=== PATIENT | male | born 1965 | race African-American/Black ===

== ENCOUNTER 2017-02-12 14:03 | Emergency (ER) | payer MEDICAID ==
[~2017-02-12] VITALS: Ht 162.6 cm; Wt 65.0 kg
[~2017-02-12 14:03] MED LIST: TRAMADOL
[2017-02-12] MEDS ORDERED: TRAMADOL 50MG TABLET PO ONE (17:00)
[2017-02-12] MEDS ORDERED: CEFTRIAXONE SODIUM 250 MG/VIAL IM ONE (18:00)
[2017-02-12] MEDS ORDERED: AZITHROMYCIN 500 MG TABLET PO ONE (18:00)
[2017-02-12] MEDS ORDERED: LIDOCAINE HCL 1% 20ML VIAL (Pyxis) INJ INFIL ONE (18:00)
[2017-02-12 18:46] VITALS: BP 132/78
== END 2017-02-12 18:47 | disposition home or self-care (01) ==
LOC: ER 16:08
DX: N45.3 Epididymo-orchitis (principal); N43.3 Hydrocele, unspecified; I10 Essential (primary) hypertension; G83.9 Paralytic syndrome, unspecified; Z87.891 Personal history of nicotine dependence
CPT/HCPCS: 76870; 93976; 96372; 99284; J0696; J3490; Z7610

== ENCOUNTER 2019-01-24 12:50 | Emergency (ER) | payer MEDICAID ==
[~2019-01-24] VITALS: Ht 157.5 cm; Wt 78.0 kg
[2019-01-24 14:06] VITALS: BP 138/86
== END 2019-01-24 14:07 | disposition home or self-care (01) ==
LOC: ER 12:50
DX: G89.29 Other chronic pain (principal); M54.5 Low back pain; I10 Essential (primary) hypertension; F17.200 Nicotine dependence, unspecified, uncomplicated; Z79.899 Other long term (current) drug therapy
CPT/HCPCS: 99283

== ENCOUNTER 2021-04-24 18:52 | Inpatient (IN) | payer MEDICAID ==
[~2021-04-24] VITALS: Ht 170.2 cm; Wt 57.2 kg
[2021-04-24] MEDS ORDERED: ACETAMINOPHEN 325MG TABLET PO STA (22:42)
[2021-04-24] MEDS ORDERED: SODIUM CHLORIDE 0.9% 1000ML BAG (SEPSIS BOLUS) IV ONE (22:45)
[2021-04-24] MEDS ORDERED: AZITHROMYCIN 500MG/250ML 250 ML IV ONE (22:45)
[2021-04-24] MEDS ORDERED: CEFTRIAXONE 1 G PREMIX 50 ML IV ONE (22:45)
[2021-04-24 23:22] LABS: HEMATOCRIT. 27.7 % (42.0-52.0); HEMOGLOBIN. 9.4 g/dL (14.0-18.0); MEAN CORPUSCULAR HEMOGLOBIN 31.3 pg (28.0-32.0); MEAN CORPUSCULAR VOLUME 92.9 fL (80.0-94.0); PLATELET 352 x1000/uL (130-400); RED BLOOD CELL COUNT 2.99 mill/uL (4.7-6.1); RED CELL DISTRIBUTION WIDTH 13.8 % (11.6-14.6)
[2021-04-24 23:29] LABS: CHLORIDE 101 mEq/L (98-107)
[2021-04-24 23:32] LABS: INR 1.2
[2021-04-25 00:17] LABS: PLATELET ESTIMATE NORMAL
[2021-04-25] MEDS ORDERED: METRONIDAZOLE 500 MG PREMIX 100 ML IV ONE (00:45)
[2021-04-25] MEDS ORDERED: MORPHINE SULFATE 4 MG/ML CPJ (NOT FOR IM USE) IV ONE (01:00)
[2021-04-25 04:25] LABS: CLARITY URINE CLOUDY (CLEAR); COLOR URINE DARK YELLOW (YELLOW); KETONES URINE NEGATIVE (NEGATIVE); LEUKOCYTE ESTERASE URINE 3+ (NEGATIVE); NITRITE URINE POSITIVE (NEGATIVE); OCCULT BLOOD URINE 3+ (NEGATIVE); PH URINE 6.5 (4.5-8.0); PROTEIN URINE 2+ (NEGATIVE); SPECIFIC GRAVITY URINE 1.014 (1.005-1.030)
[2021-04-25 04:42] LABS: *AMPHETAMINES SCREEN URINE NEGATIVE (NEGATIVE); *BARBITURATES SCREEN URINE NEGATIVE (NEGATIVE); *BENZODIAZEPINES SCREEN URINE NEGATIVE (NEGATIVE); *COCAINE SCREEN URINE NEGATIVE (NEGATIVE); METHADONE URINE SCREEN NEGATIVE (NEGATIVE); OPIATES URINE SCREEN NEGATIVE (NEGATIVE)
[2021-04-25 04:43] LABS: CANNABINOID URINE SCREEN NEGATIVE (NEGATIVE); PHENCYCLIDINE URINE SCREEN NEGATIVE (NEGATIVE)
[2021-04-25] MEDS: TRAMADOL 50MG TABLET PO PRN ×2 (05:31→11:07)
[2021-04-25] MEDS ORDERED: IOHEXOL-300 100 ML BOTTLE ONE ×2 (06:22→22:18)
[2021-04-25] MEDS ORDERED: ONDANSETRON HCL 4MG/2ML INJ IV PRN (10:45)
[2021-04-25 10:54] VITALS: BP 131/84
[2021-04-25 12:00] VITALS: BP_SYST 126; BP_SYST 130; BP_DIAS 73; BP_DIAS 79
[2021-04-25] MEDS: PIPERACILLIN/TAZOBACTAM 3.375 G in DEXTROSE 5% WATER 50 ML IV SCH ×2 (14:11→23:04)
[2021-04-25 16:00] VITALS: BP 129/75
[2021-04-25] MEDS ORDERED: NALOXONE HCL 0.4MG/ML VIAL IV PRN (16:45)
[2021-04-25] MEDS: MORPHINE SULFATE 2 MG/ML CPJ (NOT FOR IM USE) IV PRN (16:59)
[2021-04-25] MEDS: VANCOMYCIN 1250MG in DEXTROSE 5% WATER 250ML IV SCH (17:00)
[2021-04-25] MEDS: POTASSIUM CHLORIDE INJ 30 MEQ in SODIUM CHLORIDE 0.45% 1,000 ML IV SCH (17:03)
[2021-04-25 20:00] VITALS: BP 107/62
[2021-04-26] VITALS: BP 119/74
[2021-04-26] MEDS: POTASSIUM CHLORIDE INJ 30 MEQ in SODIUM CHLORIDE 0.45% 1,000 ML IV SCH (01:17)
[2021-04-26] MEDS: MORPHINE SULFATE 2 MG/ML CPJ (NOT FOR IM USE) IV PRN ×3 (02:09→20:13)
[2021-04-26] MEDS: VANCOMYCIN 1250MG in DEXTROSE 5% WATER 250ML IV SCH ×2 (03:15→15:22)
[2021-04-26 04:00] VITALS: BP 96/64
[2021-04-26] MEDS: PIPERACILLIN/TAZOBACTAM 3.375 G in DEXTROSE 5% WATER 50 ML IV SCH ×3 (06:00→22:45)
[2021-04-26 08:00] VITALS: BP 105/51
[2021-04-26] MEDS ORDERED: INFLUENZA VACCINE 05/PF 0.5 ML SYRINGE IM ONE (10:00)
[2021-04-26 12:00] VITALS: BP 91/73
[2021-04-26] MEDS ORDERED: GADOTERATE MEGLUMINE 5 MMOL/10 ML VIAL IV ONE (15:12)
[2021-04-26] MEDS: DEXT 5%/0.45% NACL KCL 20MEQ/L 1,000 ML IV SCH (15:23)
[2021-04-26 16:00] VITALS: BP_SYST 125; BP_SYST 126; BP_DIAS 57; BP_DIAS 58
[2021-04-26 20:00] VITALS: BP 113/69
[2021-04-26 20:17] LABS: CHLORIDE 100 mEq/L (98-107)
[2021-04-26 20:36] LABS: HEMATOCRIT. 23.6 % (42.0-52.0); HEMOGLOBIN. 8.1 g/dL (14.0-18.0); MEAN CORPUSCULAR HEMOGLOBIN 31.7 pg (28.0-32.0); MEAN CORPUSCULAR VOLUME 92.7 fL (80.0-94.0); MEAN PLATELET VOLUME 7.9 fl (7.4-10.4); PLATELET 324 x1000/uL (130-400); RED BLOOD CELL COUNT 2.55 mill/uL (4.7-6.1); RED CELL DISTRIBUTION WIDTH 13.6 % (11.6-14.6)
[2021-04-26 22:42] LABS: PLATELET ESTIMATE NORMAL
[2021-04-27] VITALS: BP 110/80
[2021-04-27] MEDS: VANCOMYCIN 1250MG in DEXTROSE 5% WATER 250ML IV SCH ×2 (02:46→15:51)
[2021-04-27] MEDS: DEXT 5%/0.45% NACL KCL 20MEQ/L 1,000 ML IV SCH ×3 (02:46→23:05)
[2021-04-27] MEDS: MORPHINE SULFATE 2 MG/ML CPJ (NOT FOR IM USE) IV PRN ×3 (02:53→17:33)
[2021-04-27 04:00] VITALS: BP 100/70
[2021-04-27] MEDS: PIPERACILLIN/TAZOBACTAM 3.375 G in DEXTROSE 5% WATER 50 ML IV SCH ×3 (05:53→21:14)
[2021-04-27 06:32] LABS: CHLORIDE 102 mEq/L (98-107)
[2021-04-27 06:36] LABS: BASOPHILS % 0.1 % (0.0-2.0); HEMATOCRIT. 24.9 % (42.0-52.0); HEMOGLOBIN. 8.5 g/dL (14.0-18.0); LYMPHOCYTES % 4.9 % (20.0-50.0); MEAN CORPUSCULAR HEMOGLOBIN 31.9 pg (28.0-32.0); MEAN CORPUSCULAR VOLUME 93.8 fL (80.0-94.0); MONOCYTES % 4.6 % (2.0-8.0); NEUTROPHILS % 90.4 % (40.0-76.0); PLATELET 332 x1000/uL (130-400); RED BLOOD CELL COUNT 2.66 mill/uL (4.7-6.1); RED CELL DISTRIBUTION WIDTH 13.9 % (11.6-14.6)
[2021-04-27 08:00] VITALS: BP 130/65
[2021-04-27 12:00] VITALS: BP 118/78
[2021-04-27 16:00] VITALS: BP 136/82
[2021-04-27 20:00] VITALS: BP 110/67
[2021-04-28] VITALS: BP 118/63
[2021-04-28] MEDS: MORPHINE SULFATE 2 MG/ML CPJ (NOT FOR IM USE) IV PRN ×3 (01:04→18:37)
[2021-04-28] MEDS: VANCOMYCIN 1250MG in DEXTROSE 5% WATER 250ML IV SCH (01:04)
[2021-04-28 04:00] VITALS: BP 100/59
[2021-04-28] MEDS: PIPERACILLIN/TAZOBACTAM 3.375 G in DEXTROSE 5% WATER 50 ML IV SCH ×3 (05:07→21:21)
[2021-04-28 05:52] LABS: BASOPHILS % 0.2 % (0.0-2.0); HEMATOCRIT. 25.8 % (42.0-52.0); HEMOGLOBIN. 8.6 g/dL (14.0-18.0); LYMPHOCYTES % 10.4 % (20.0-50.0); MEAN CORPUSCULAR HEMOGLOBIN 31.9 pg (28.0-32.0); MEAN CORPUSCULAR VOLUME 95.7 fL (80.0-94.0); MEAN PLATELET VOLUME 7.8 fl (7.4-10.4); MONOCYTES % 8.1 % (2.0-8.0); NEUTROPHILS % 81.3 % (40.0-76.0); PLATELET 333 x1000/uL (130-400)
[2021-04-28 06:08] LABS: CHLORIDE 104 mEq/L (98-107)
[2021-04-28 08:00] VITALS: BP 140/98
[2021-04-28 12:00] VITALS: BP 138/96
[2021-04-28] MEDS: ACETAMINOPHEN 325MG TABLET PO PRN (16:32)
[2021-04-28] MEDS: DEXT 5%/0.45% NACL KCL 20MEQ/L 1,000 ML IV SCH (16:34)
[2021-04-28 20:00] VITALS: BP 123/63
[2021-04-28] MEDS: METHYL SALICYLATE/MENTHOL CREAM 85GM TOP PRN (20:40)
[2021-04-29] VITALS: BP 131/98
[2021-04-29] MEDS: MORPHINE SULFATE 2 MG/ML CPJ (NOT FOR IM USE) IV PRN (00:34)
[2021-04-29] MEDS: DEXT 5%/0.45% NACL KCL 20MEQ/L 1,000 ML IV SCH ×2 (03:30→18:27)
[2021-04-29 04:00] VITALS: BP 133/96
[2021-04-29] MEDS: PIPERACILLIN/TAZOBACTAM 3.375 G in DEXTROSE 5% WATER 50 ML IV SCH ×3 (05:08→21:31)
[2021-04-29 06:47] LABS: CHLORIDE 105 mEq/L (98-107)
[2021-04-29 07:01] LABS: HEMATOCRIT. 23.7 % (42.0-52.0); HEMOGLOBIN. 7.9 g/dL (14.0-18.0); LYMPHOCYTES % 9.4 % (20.0-50.0); MEAN CORPUSCULAR HEMOGLOBIN 31.4 pg (28.0-32.0); MEAN CORPUSCULAR VOLUME 94.3 fL (80.0-94.0); MEAN PLATELET VOLUME 7.9 fl (7.4-10.4); MONOCYTES % 6.3 % (2.0-8.0); NEUTROPHILS % 84.3 % (40.0-76.0); PLATELET 340 x1000/uL (130-400); RED BLOOD CELL COUNT 2.51 mill/uL (4.7-6.1); RED CELL DISTRIBUTION WIDTH 13.7 % (11.6-14.6)
[2021-04-29 08:00] VITALS: BP 148/66
[2021-04-29] MEDS ORDERED: POTASSIUM CHLORIDE 20MEQ TABLET SR PO SCH (11:30)
[2021-04-29 12:00] VITALS: BP 135/88
[2021-04-29 16:00] VITALS: BP 140/93
[2021-04-29] MEDS: TRAMADOL 50MG TABLET PO PRN (17:40)
[2021-04-29 20:00] VITALS: BP 133/61
[2021-04-30] VITALS: BP 128/71
[2021-04-30 04:00] VITALS: BP 130/70
[2021-04-30] MEDS: TRAMADOL 50MG TABLET PO PRN ×2 (04:24→18:33)
[2021-04-30] MEDS: DEXT 5%/0.45% NACL KCL 20MEQ/L 1,000 ML IV SCH ×2 (04:26→18:34)
[2021-04-30] MEDS: PIPERACILLIN/TAZOBACTAM 3.375 G in DEXTROSE 5% WATER 50 ML IV SCH ×3 (05:40→23:17)
[2021-04-30 08:00] VITALS: BP 130/73
[2021-04-30 11:56] LABS: CHLORIDE 107 mEq/L (98-107); HEMATOCRIT. 21.8 % (42.0-52.0); HEMOGLOBIN. 7.3 g/dL (14.0-18.0); MEAN CORPUSCULAR HEMOGLOBIN 31.7 pg (28.0-32.0); MEAN CORPUSCULAR VOLUME 94.5 fL (80.0-94.0); MEAN PLATELET VOLUME 7.6 fl (7.4-10.4); PLATELET 334 x1000/uL (130-400); RED BLOOD CELL COUNT 2.31 mill/uL (4.7-6.1); RED CELL DISTRIBUTION WIDTH 13.8 % (11.6-14.6)
[2021-04-30 12:00] VITALS: BP 142/76
[2021-04-30] MEDS ORDERED: POTASSIUM CHLORIDE 20MEQ TABLET SR PO NR (12:00)
[2021-04-30 16:00] VITALS: BP 148/72
[2021-04-30 20:00] VITALS: BP 136/76
[2021-04-30 23:26] LABS: PLATELET ESTIMATE NORMAL
[2021-05-01] VITALS: BP 122/70
[2021-05-01 04:00] VITALS: BP 127/61
[2021-05-01] MEDS: PIPERACILLIN/TAZOBACTAM 3.375 G in DEXTROSE 5% WATER 50 ML IV SCH ×3 (06:08→20:51)
[2021-05-01] MEDS ORDERED: POTASSIUM CHLORIDE 20MEQ TABLET SR PO ONE (07:45)
[2021-05-01 08:00] VITALS: BP 134/65
[2021-05-01] MEDS: DEXT 5%/0.45% NACL KCL 20MEQ/L 1,000 ML IV SCH ×2 (08:46→20:50)
[2021-05-01] MEDS: TRAMADOL 50MG TABLET PO PRN ×2 (08:46→16:10)
[2021-05-01 12:00] VITALS: BP 131/77
[2021-05-01 16:00] VITALS: BP 127/75
[2021-05-01 20:00] VITALS: BP 128/79
[2021-05-01] MEDS ORDERED: POTASSIUM CHLORIDE 20MEQ/PACKET PO NR (21:00)
[2021-05-02] VITALS: BP 122/80
[2021-05-02 04:00] VITALS: BP 128/79
[2021-05-02 06:13] LABS: HEMATOCRIT. 23.1 % (42.0-52.0); HEMOGLOBIN. 7.7 g/dL (14.0-18.0); MEAN CORPUSCULAR HEMOGLOBIN 31.5 pg (28.0-32.0); MEAN CORPUSCULAR VOLUME 94.5 fL (80.0-94.0); MEAN PLATELET VOLUME 7.9 fl (7.4-10.4); PLATELET 362 x1000/uL (130-400); RED BLOOD CELL COUNT 2.44 mill/uL (4.7-6.1)
[2021-05-02 06:46] LABS: CHLORIDE 108 mEq/L (98-107)
[2021-05-02] MEDS: PIPERACILLIN/TAZOBACTAM 3.375 G in DEXTROSE 5% WATER 50 ML IV SCH ×3 (07:06→21:13)
[2021-05-02] MEDS: DEXT 5%/0.45% NACL KCL 20MEQ/L 1,000 ML IV SCH ×2 (07:06→20:34)
[2021-05-02 08:00] VITALS: BP 119/98
[2021-05-02] MEDS ORDERED: KCL 20MEQ/100ML PREMIX 100 ML IV NR (11:30)
[2021-05-02 12:00] VITALS: BP 136/81
[2021-05-02] MEDS: TRAMADOL 50MG TABLET PO PRN (12:24)
[2021-05-02 16:00] VITALS: BP 136/88
[2021-05-02 17:44] LABS: PLATELET ESTIMATE NORMAL
[2021-05-02 20:00] VITALS: BP 123/67
[2021-05-03] VITALS: BP 122/72
[2021-05-03 04:00] VITALS: BP 120/68
[2021-05-03] MEDS: PIPERACILLIN/TAZOBACTAM 3.375 G in DEXTROSE 5% WATER 50 ML IV SCH ×3 (05:21→21:05)
[2021-05-03] MEDS: ACETAMINOPHEN 325MG TABLET PO PRN (05:22)
[2021-05-03 08:00] VITALS: BP 146/82
[2021-05-03] MEDS: DEXT 5%/0.45% NACL KCL 20MEQ/L 1,000 ML IV SCH ×2 (09:24→21:05)
[2021-05-03 10:47] LABS: BASOPHILS % 0.1 % (0.0-2.0); EOSINOPHILS % 0.1 % (0.0-5.0); HEMATOCRIT. 24.6 % (42.0-52.0); HEMOGLOBIN. 8.4 g/dL (14.0-18.0); MEAN CORPUSCULAR HEMOGLOBIN 32.4 pg (28.0-32.0); MEAN CORPUSCULAR VOLUME 94.4 fL (80.0-94.0); MEAN PLATELET VOLUME 7.9 fl (7.4-10.4); MONOCYTES % 8.9 % (2.0-8.0); NEUTROPHILS % 80.9 % (40.0-76.0); PLATELET 402 x1000/uL (130-400); RED CELL DISTRIBUTION WIDTH 14.1 % (11.6-14.6)
[2021-05-03 10:51] LABS: CHLORIDE 106 mEq/L (98-107)
[2021-05-03] MEDS: METHYL SALICYLATE/MENTHOL CREAM 85GM TOP PRN (15:19)
[2021-05-03 20:00] VITALS: BP 122/88
[2021-05-03] MEDS: TRAMADOL 50MG TABLET PO PRN (21:07)
[2021-05-04] VITALS: BP 101/73
[2021-05-04 04:00] VITALS: BP 110/62
[2021-05-04 07:10] LABS: BASOPHILS % 0.1 % (0.0-2.0); EOSINOPHILS % 0.1 % (0.0-5.0); HEMATOCRIT. 23.2 % (42.0-52.0); HEMOGLOBIN. 7.8 g/dL (14.0-18.0); LYMPHOCYTES % 9.1 % (20.0-50.0); MEAN CORPUSCULAR HEMOGLOBIN 31.9 pg (28.0-32.0); MEAN CORPUSCULAR VOLUME 95.1 fL (80.0-94.0); MEAN PLATELET VOLUME 7.7 fl (7.4-10.4); MONOCYTES % 8.2 % (2.0-8.0); NEUTROPHILS % 82.5 % (40.0-76.0); PLATELET 371 x1000/uL (130-400); RED BLOOD CELL COUNT 2.44 mill/uL (4.7-6.1); RED CELL DISTRIBUTION WIDTH 14.4 % (11.6-14.6)
[2021-05-04 07:38] LABS: CHLORIDE 107 mEq/L (98-107)
[2021-05-04 08:13] VITALS: BP 125/71
[2021-05-04] MEDS: DEXT 5%/0.45% NACL KCL 20MEQ/L 1,000 ML IV SCH (08:34)
[2021-05-04 11:48] VITALS: BP 108/69
[2021-05-04] MEDS ORDERED: POTASSIUM CHLORIDE 20MEQ TABLET SR PO NR ×2 (12:00→18:00)
[2021-05-04 16:00] VITALS: BP 119/72
[2021-05-04] MEDS: PIPERACILLIN/TAZOBACTAM 3.375 G in DEXTROSE 5% WATER 50 ML IV SCH ×2 (16:39→22:07)
[2021-05-04 20:00] VITALS: BP 113/72
[2021-05-04] MEDS: ACETAMINOPHEN 325MG TABLET PO PRN (22:07)
[2021-05-05] VITALS: BP 112/60
[2021-05-05 04:00] VITALS: BP 116/86
[2021-05-05] MEDS: PIPERACILLIN/TAZOBACTAM 3.375 G in DEXTROSE 5% WATER 50 ML IV SCH ×3 (05:15→22:00)
[2021-05-05] MEDS: DEXT 5%/0.45% NACL KCL 20MEQ/L 1,000 ML IV SCH ×2 (05:15→23:00)
[2021-05-05 08:00] VITALS: BP 97/75
[2021-05-05 08:35] LABS: HEMATOCRIT. 24.1 % (42.0-52.0); HEMOGLOBIN. 7.9 g/dL (14.0-18.0); MEAN CORPUSCULAR HEMOGLOBIN 31.3 pg (28.0-32.0); MEAN CORPUSCULAR VOLUME 95.2 fL (80.0-94.0); MEAN PLATELET VOLUME 7.4 fl (7.4-10.4); PLATELET 442 x1000/uL (130-400); RED BLOOD CELL COUNT 2.53 mill/uL (4.7-6.1); RED CELL DISTRIBUTION WIDTH 14.7 % (11.6-14.6)
[2021-05-05 09:33] LABS: CHLORIDE 108 mEq/L (98-107)
[2021-05-05 12:00] VITALS: BP 124/83
[2021-05-05 14:48] LABS: ATYPICAL LYMPHOCYTES 1
[2021-05-05 14:49] LABS: PLATELET ESTIMATE SLIGHTLY INCREASED
[2021-05-05 16:00] VITALS: BP 131/75
[2021-05-05 20:00] VITALS: BP 117/75
[2021-05-06] VITALS: BP 99/65
[2021-05-06 04:00] VITALS: BP 104/73
[2021-05-06] MEDS: PIPERACILLIN/TAZOBACTAM 3.375 G in DEXTROSE 5% WATER 50 ML IV SCH ×2 (06:00→13:03)
[2021-05-06 07:56] LABS: HEMOGLOBIN. 7.9 g/dL (14.0-18.0); MEAN CORPUSCULAR HEMOGLOBIN 31.5 pg (28.0-32.0); MEAN CORPUSCULAR VOLUME 95.9 fL (80.0-94.0); MEAN PLATELET VOLUME 7.6 fl (7.4-10.4); PLATELET 404 x1000/uL (130-400); RED CELL DISTRIBUTION WIDTH 14.8 % (11.6-14.6)
[2021-05-06 08:00] VITALS: BP 95/58
[2021-05-06] MEDS ORDERED: LIDOCAINE HCL 1% 20ML VIAL (Pyxis) INJ ONE (08:17)
[2021-05-06 11:12] LABS: CHLORIDE 108 mEq/L (98-107)
[2021-05-06 12:00] VITALS: BP 93/64
[2021-05-06] MEDS: DEXT 5%/0.45% NACL KCL 20MEQ/L 1,000 ML IV SCH ×2 (13:03→22:34)
[2021-05-06] MEDS: TRAMADOL 50MG TABLET PO PRN (13:04)
[2021-05-06] MEDS ORDERED: KCL 20MEQ/100ML PREMIX 100 ML IV SCH (15:00)
[2021-05-06 17:00] VITALS: BP 111/78
[2021-05-06 17:48] LABS: PLATELET ESTIMATE INCREASED
[2021-05-06 20:00] VITALS: BP 118/69
[2021-05-06] MEDS: CEFAZOLIN 2,000 MG in DEXT 5% WATER 100 ML IV SCH (23:19)
[2021-05-07] VITALS: BP 99/61
[2021-05-07 04:00] VITALS: BP 118/60
[2021-05-07] MEDS: CEFAZOLIN 2,000 MG in DEXT 5% WATER 100 ML IV SCH ×3 (06:22→22:24)
[2021-05-07 06:43] LABS: BASOPHILS % 0.2 % (0.0-2.0); HEMATOCRIT. 22.9 % (42.0-52.0); HEMOGLOBIN. 7.5 g/dL (14.0-18.0); LYMPHOCYTES % 14.6 % (20.0-50.0); MEAN CORPUSCULAR HEMOGLOBIN 30.9 pg (28.0-32.0); MEAN CORPUSCULAR VOLUME 94.3 fL (80.0-94.0); MEAN PLATELET VOLUME 7.5 fl (7.4-10.4); MONOCYTES % 6.1 % (2.0-8.0); NEUTROPHILS % 79.1 % (40.0-76.0); PLATELET 395 x1000/uL (130-400); RED BLOOD CELL COUNT 2.43 mill/uL (4.7-6.1); RED CELL DISTRIBUTION WIDTH 14.5 % (11.6-14.6)
[2021-05-07 07:24] LABS: CHLORIDE 110 mEq/L (98-107)
[2021-05-07 08:00] VITALS: BP 116/59
[2021-05-07] MEDS ORDERED: POTASSIUM CHLORIDE 20MEQ TABLET SR PO NR (11:30)
[2021-05-07] MEDS: DEXT 5%/0.45% NACL KCL 20MEQ/L 1,000 ML IV SCH ×2 (11:59→23:39)
[2021-05-07 12:00] VITALS: BP 124/92
[2021-05-07 13:58] LABS: TOTAL IRON BINDING CAPACITY 116 ug/dL (250-450)
[2021-05-07 16:00] VITALS: BP 127/75
[2021-05-07 20:00] VITALS: BP 113/75
[2021-05-07] MEDS: ACETAMINOPHEN 325MG TABLET PO PRN (22:01)
[2021-05-08] VITALS: BP 123/66
[2021-05-08] MEDS: TRAMADOL 50MG TABLET PO PRN ×2 (03:59→23:49)
[2021-05-08 04:00] VITALS: BP 115/74
[2021-05-08] MEDS: CEFAZOLIN 2,000 MG in DEXT 5% WATER 100 ML IV SCH ×3 (06:43→22:29)
[2021-05-08 06:52] LABS: BASOPHILS % 0.2 % (0.0-2.0); EOSINOPHILS % 0.2 % (0.0-5.0); HEMATOCRIT. 22.3 % (42.0-52.0); HEMOGLOBIN. 7.5 g/dL (14.0-18.0); LYMPHOCYTES % 15.3 % (20.0-50.0); MEAN CORPUSCULAR HEMOGLOBIN 31.7 pg (28.0-32.0); MEAN CORPUSCULAR VOLUME 94.4 fL (80.0-94.0); MEAN PLATELET VOLUME 7.4 fl (7.4-10.4); MONOCYTES % 7.3 % (2.0-8.0); PLATELET 369 x1000/uL (130-400); RED BLOOD CELL COUNT 2.36 mill/uL (4.7-6.1); RED CELL DISTRIBUTION WIDTH 14.3 % (11.6-14.6)
[2021-05-08 07:05] LABS: CHLORIDE 107 mEq/L (98-107)
[2021-05-08 08:00] VITALS: BP 124/70
[2021-05-08 12:00] VITALS: BP 119/66
[2021-05-08] MEDS: DEXT 5%/0.45% NACL KCL 20MEQ/L 1,000 ML IV SCH (14:13)
[2021-05-08 16:00] VITALS: BP 131/63
[2021-05-08 20:00] VITALS: BP 138/81
[2021-05-09] VITALS: BP 136/79
[2021-05-09 04:00] VITALS: BP 133/82
[2021-05-09] MEDS: DEXT 5%/0.45% NACL KCL 20MEQ/L 1,000 ML IV SCH ×2 (05:57→14:43)
[2021-05-09] MEDS: CEFAZOLIN 2,000 MG in DEXT 5% WATER 100 ML IV SCH ×3 (05:58→22:03)
[2021-05-09 08:00] VITALS: BP 120/75
[2021-05-09 12:00] VITALS: BP 117/76
[2021-05-09 16:00] VITALS: BP 121/74
[2021-05-09] MEDS ORDERED: NALOXONE HCL 0.4MG/ML VIAL IV PRN (19:30)
[2021-05-09 20:00] VITALS: BP 132/74
[2021-05-09] MEDS: TRAMADOL 50MG TABLET PO PRN (21:42)
[2021-05-10] VITALS: BP 120/74
[2021-05-10] MEDS: DEXT 5%/0.45% NACL KCL 20MEQ/L 1,000 ML IV SCH ×2 (02:11→16:08)
[2021-05-10 04:00] VITALS: BP 124/92
[2021-05-10] MEDS: CEFAZOLIN 2,000 MG in DEXT 5% WATER 100 ML IV SCH ×3 (06:04→22:24)
[2021-05-10 08:00] VITALS: BP 124/64
[2021-05-10 08:27] LABS: BASOPHILS % 0.2 % (0.0-2.0); EOSINOPHILS % 0.1 % (0.0-5.0); HEMATOCRIT. 21.4 % (42.0-52.0); HEMOGLOBIN. 7.1 g/dL (14.0-18.0); LYMPHOCYTES % 14.3 % (20.0-50.0); MEAN CORPUSCULAR HEMOGLOBIN 31.4 pg (28.0-32.0); MEAN CORPUSCULAR VOLUME 95.1 fL (80.0-94.0); MEAN PLATELET VOLUME 7.8 fl (7.4-10.4); MONOCYTES % 9.2 % (2.0-8.0); NEUTROPHILS % 76.2 % (40.0-76.0); PLATELET 283 x1000/uL (130-400); RED BLOOD CELL COUNT 2.25 mill/uL (4.7-6.1); RED CELL DISTRIBUTION WIDTH 14.4 % (11.6-14.6)
[2021-05-10 08:45] LABS: CHLORIDE 105 mEq/L (98-107)
[2021-05-10] MEDS ORDERED: POTASSIUM CHLORIDE 20MEQ/PACKET PO SCH (10:30)
[2021-05-10 12:00] VITALS: BP 126/83
[2021-05-10 16:00] VITALS: BP 153/75
[2021-05-10 20:00] VITALS: BP 115/76
[2021-05-10] MEDS: TRAMADOL 50MG TABLET PO PRN (21:16)
[2021-05-11] VITALS: BP 136/72
[2021-05-11 04:00] VITALS: BP 120/70
[2021-05-11] MEDS: DEXT 5%/0.45% NACL KCL 20MEQ/L 1,000 ML IV SCH (04:19)
[2021-05-11] MEDS: CEFAZOLIN 2,000 MG in DEXT 5% WATER 100 ML IV SCH (06:06)
[2021-05-11 06:48] LABS: BASOPHILS % 0.1 % (0.0-2.0); EOSINOPHILS % 0.2 % (0.0-5.0); HEMATOCRIT. 22.5 % (42.0-52.0); HEMOGLOBIN. 7.5 g/dL (14.0-18.0); LYMPHOCYTES % 13.6 % (20.0-50.0); MEAN CORPUSCULAR HEMOGLOBIN 31.6 pg (28.0-32.0); MEAN CORPUSCULAR VOLUME 94.7 fL (80.0-94.0); MEAN PLATELET VOLUME 7.6 fl (7.4-10.4); MONOCYTES % 9.5 % (2.0-8.0); NEUTROPHILS % 76.6 % (40.0-76.0); PLATELET 292 x1000/uL (130-400); RED BLOOD CELL COUNT 2.38 mill/uL (4.7-6.1); RED CELL DISTRIBUTION WIDTH 14.6 % (11.6-14.6)
[2021-05-11 06:51] LABS: CHLORIDE 102 mEq/L (98-107)
[2021-05-11 08:00] VITALS: BP 123/61
[2021-05-11] MEDS ORDERED: BISACODYL 10MG SUPP PR SCH (10:15)
[2021-05-11 12:00] VITALS: BP 123/61
[2021-05-11] MEDS ORDERED: IOHEXOL-300 100 ML BOTTLE ONE (12:11)
== END 2021-05-11 14:05 | disposition left against medical advice (07) | DRG 720 ==
LOC: ER 18:52 → MICUSO 04-25 04:15 → 7EST 04-25 07:39
PROVIDERS: ADMIT Internal Medicine; ATTEND Internal Medicine
PROC: 02HV33Z Insertion of Infusion Device into Superior Vena Cava, Percutaneous Approach (ICD-10-PCS; 2021-04-25)
PROC: B548ZZA Ultrasonography of Superior Vena Cava, Guidance (ICD-10-PCS; 2021-04-25)
PROC: 0HBRXZZ Excision of Toe Nail, External Approach (ICD-10-PCS; principal; 2021-04-26)
PROC: 0HBRXZZ Excision of Toe Nail, External Approach (ICD-10-PCS; 2021-04-26)
PROC: 0HBRXZZ Excision of Toe Nail, External Approach (ICD-10-PCS; 2021-04-26)
PROC: 0HBRXZZ Excision of Toe Nail, External Approach (ICD-10-PCS; 2021-04-26)
PROC: 0HBRXZZ Excision of Toe Nail, External Approach (ICD-10-PCS; 2021-04-26)
PROC: 0HBRXZZ Excision of Toe Nail, External Approach (ICD-10-PCS; 2021-04-26)
PROC: 0HBRXZZ Excision of Toe Nail, External Approach (ICD-10-PCS; 2021-04-26)
PROC: 0HBRXZZ Excision of Toe Nail, External Approach (ICD-10-PCS; 2021-04-26)
PROC: 0HBRXZZ Excision of Toe Nail, External Approach (ICD-10-PCS; 2021-04-26)
PROC: 0HBRXZZ Excision of Toe Nail, External Approach (ICD-10-PCS; 2021-04-26)
PROC: 02HV33Z Insertion of Infusion Device into Superior Vena Cava, Percutaneous Approach (ICD-10-PCS; 2021-04-27)
PROC: B548ZZA Ultrasonography of Superior Vena Cava, Guidance (ICD-10-PCS; 2021-04-27)
PROC: 02HV33Z Insertion of Infusion Device into Superior Vena Cava, Percutaneous Approach (ICD-10-PCS; 2021-05-06)
PROC: B548ZZA Ultrasonography of Superior Vena Cava, Guidance (ICD-10-PCS; 2021-05-06)
PROC: B5181ZA Fluoroscopy of Superior Vena Cava using Low Osmolar Contrast, Guidance (ICD-10-PCS; 2021-05-06)
DX: A41.01 Sepsis due to Methicillin susceptible Staphylococcus aureus (principal); G06.1 Intraspinal abscess and granuloma; G06.2 Extradural and subdural abscess, unspecified; G93.41 Metabolic encephalopathy; M00.851 Arthritis due to other bacteria, right hip; E43 Unspecified severe protein-calorie malnutrition; F17.210 Nicotine dependence, cigarettes, uncomplicated; D50.9 Iron deficiency anemia, unspecified; K68.12 Psoas muscle abscess; G82.20 Paraplegia, unspecified; M00.9 Pyogenic arthritis, unspecified; I72.9 Aneurysm of unspecified site; L02.31 Cutaneous abscess of buttock; E87.6 Hypokalemia; I10 Essential (primary) hypertension; L60.2 Onychogryphosis; L85.3 Xerosis cutis; N30.90 Cystitis, unspecified without hematuria; E86.0 Dehydration; I71.9 Aortic aneurysm of unspecified site, without rupture; R74.01 Elevation of levels of liver transaminase levels; I73.9 Peripheral vascular disease, unspecified; I70.8 Atherosclerosis of other arteries; L02.215 Cutaneous abscess of perineum; G89.29 Other chronic pain; N49.2 Inflammatory disorders of scrotum; B96.20 Unspecified Escherichia coli [E. coli] as the cause of diseases classified elsewhere; L02.416 Cutaneous abscess of left lower limb; L02.415 Cutaneous abscess of right lower limb; I34.0 Nonrheumatic mitral (valve) insufficiency; Z20.822 Contact with and (suspected) exposure to COVID-19; E80.6 Other disorders of bilirubin metabolism; M00.852 Arthritis due to other bacteria, left hip; Z68.1 Body mass index [BMI] 19.9 or less, adult
CPT/HCPCS: 36415; 36573; 70551; 71045; 71260; 72132; 72156; 72157; 72158; 74177; 76937; 80048; 80053; 80202; 80305; 81003; 82728; 83540; 83550; 83605; 83735; 84145; 84484; 85025; 87077; 87186; 87426; 90686; 93005; 93306; 93923; 93971; 97162; 99285; A6261; A9577; C1725; J0456; J0690; J2270; J2543; J3370; J3480; J3490; J7030; J7040; J7060; Q9967; A4315